=== PATIENT | male | born 1990 | race Caucasian/White ===

== ENCOUNTER 2017-08-30 14:16 | Inpatient (IN) ==
--- NOTE | 2017-08-30 15:07 | Emergency Department Note ---
Disposition Clinical Impression: Suicidal ideation Depression Qualifiers: Depression Type: unspecified Qualified Code(s): F32.9 - Major depressive disorder, single episode, unspecified Disposition: Admitted As Inpatient Condition: Good Time of Disposition: 18:45 Psych HPI - General Chief Complaint: ED Psychiatric Symptoms Stated Complaint: SI Time Seen by Provider: 08/30/17 14:51 Source: patient Mode of arrival: ambulatory Limitations: no limitations Nursing Notes Reviewed: Yes Vital Signs Reviewed: Yes - History of Present Illness HPI Narrative: 27-year-old male who has been depressed states he tried to hang himself 2 days ago. Denies any neck pain at this time no respiratory complaints. Patient was pink slipped on arrival. 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 Constitutional: Denies: fever, chills, weakness, weight change Eyes: Denies: eye pain, eye discharge, vision change ENT ED: Denies: ear pain, throat pain, dental pain, hearing loss, epistaxis, congestion, dysphagia Cardiovascular: Denies: chest pain, palpitations, dyspnea on exertion, edema, syncope Respiratory: Denies: cough, dyspnea, wheezes, hemoptysis, stridor Gastrointestinal: Denies: abdominal pain, nausea, vomiting, diarrhea, constipation, hematemesis, melena, hematochezia Genitourinary: Denies: urgency, dysuria, frequency, hematuria Musculoskeletal: Denies: back pain, neck pain, arthralgia, myalgia Integumentary: Denies: rash, abrasion, lesions Neurological: Denies: headache, weakness, numbness, paresthesias, confusion, abnormal gait, vertigo Psychiatric: Reports: depression, suicidal thoughts. Denies: anxiety, homicidal thoughts, auditory hallucinations, visual hallucinations Endocrine: Denies: fatigue Hematological/Lymphatic: Denies: easy bleeding, easy bruising Allergic/Immunologic: Denies: facial swelling, urticaria Past Medical History - Past Medical History Medical history: Reports: other Psychiatric history: Reports: anxiety, ADHD, depression - Social History Smoking Status: Current every day smoker Alcohol use: Reports: none Drug use: Reports: methamphetamine, IV Drug Use Physical Exam - General Limitations: no limitations General appearance: alert, in no apparent distress - Head Head exam: atraumatic, normocephalic, normal inspection - Eye Eye exam: Present: normal appearance, PERRL, EOMI - ENT ENT exam: normal exam, normal oropharynx, mucous membranes moist - Neck Neck exam: Present: normal inspection, full ROM, trachea midline - Chest Chest inspection: Present: normal inspection, symmetric chest wall rise - Respiratory Respiratory exam: Present: normal lung sounds bilaterally - Cardiovascular Cardiovascular exam: Present: regular rate, normal rhythm, normal heart sounds - Abdominal Exam Abdominal exam: Present: soft, Non-Tender. Absent: tenderness, distention, guarding, rebound, rigidity - Extremities Exam Extremities exam: Present: normal inspection, full ROM. Absent: tenderness, pedal edema - Expanded Lower Extremity Exam Neurovascular/Tendon exam: Absent: motor deficit, sensory deficit, tendon deficit Gait: observed and normal - Back Exam Back exam: Present: normal inspection, full ROM. Absent: tenderness - Neurological Exam Neurological exam: Present: alert, oriented X3 - Psychiatric Psychiatric exam: Present: depressed - Skin Skin exam: Present: warm, dry, intact, normal color Course Vital Signs Temperature 98.4 F 08/30/17 14:37 Pulse Rate 57 08/30/17 14:37 Respiratory Rate 16 08/30/17 14:37 Blood Pressure 145/77 08/30/17 14:37 O2 Sat by Pulse Oximetry 98 08/30/17 14:37 Temperature 98.4 F 08/30/17 14:37 Pulse Rate 57 08/30/17 14:37 Respiratory Rate 16 08/30/17 14:37 Blood Pressure 145/77 08/30/17 14:37 O2 Sat by Pulse Oximetry 98 08/30/17 14:37 Oxygen Delivery Oxygen Delivery Room Air Psych - Lab Data Lab results reviewed: Yes I reviewed the patient's lab results. Result diagrams: 08/30/17 15:03 08/30/17 15:03 Lab Results 08/30/17 08/30/17 08/30/17 Range/Units 15:03 15:03 16:14 WBC 9.5 (4.3-11.1) K/mcL RBC 4.41 (4.19-5.50) M/mcL Hgb 14.0 (12.9-16.9) g/dL Hct 42.8 (37.5-50.1) % MCV 97.1 (83.0-100.0) fL MCH 31.7 (28.0-33.3) pg MCHC 32.7 (31.6-35.5) g/dL RDW 12.9 (11.5-14.5) % Plt Count 275 (140-400) K/mcL MPV 9.8 (9.4-12.4) fL Immature Gran % 0.5 (0-4) % Seg Neutrophils % 60.3 % Lymphocytes % 26.6 % Monocytes % 7.9 % Eosinophils % 4.3 % Basophils % 0.4 % Neutrophils # 5.7 (1.6-8.9) K/mcL Lymphocytes # 2.5 (0.6-4.6) K/mcL Monocytes # 0.8 (0.0-1.3) K/mcL Eosinophils # 0.4 (0.0-0.6) K/mcL Basophils # 0.0 (0.0-0.2) K/mcL Sodium 138 (136-145) mEq/L Potassium 4.2 (3.5-5.1) mEq/L Chloride 109 H (98-107) mEq/L Carbon Dioxide 26 (23-29) mEq/L BUN 15 (6-20) mg/dL Creatinine 0.76 (0.70-1.30) mg/dL Est GFR ( Amer) > 60 (> 60) Est GFR (Non-Af Amer) > 60 (> 60) BUN/Creatinine Ratio 20 (6-26) Glucose 100 (70-105) mg/dL Calculated Osmolality 287 (280-300) Calcium 8.7 (8.6-10.3) mg/dL Urine Color Yellow (Yellow) Urine Clarity Clear (Clear) Urine pH 6.5 (5.0-8.0) pH Units Ur Specific [place] 1.011 (1.010-1.025) Urine Protein Negative (Neg-Trace) mg/dL Urine Glucose (UA) Normal (Normal) mg/dL Urine Ketones Negative (Negative) mg/dL Urine Blood Negative (Negative) Urine Nitrite Negative (Negative) Urine Bilirubin Negative (Negative) Urine Urobilinogen Normal (Normal) mg/dL Ur Leukocyte Esterase Trace H (Negative) Urine Microscopic RBC 0-3 (0-3) per hpf Urine Microscopic WBC 3-5 H (0-3) per hpf Ur Squamous Epith Cells Moderate H (None-Few) per lpf Urine Bacteria None Seen (None-Few) per hpf Hyaline Casts None Seen (None-Few) per lpf Salicylates < 5.0 L (15.0-30.0) mg/dL Urine Opiates Screen (Mulygg=715) ng/mL Acetaminophen < 1.0 L (10-30) mcg/mL Ur Barbiturates Screen (Ohfqhp=179) ng/mL Ur Phencyclidine Scrn (Cutoff=25) ng/mL Ur Amphetamines Screen (Txcocf=2273) ng/mL U Benzodiazepines Scrn (Ughmcg=760) ng/mL Urine Cocaine Screen (Cutoff= 300) ng/mL U Marijuana (THC) Screen (Cutoff = 50) ng/mL Ethyl Alcohol < 10 (0-10) mg/dL 08/30/17 Range/Units 16:14 WBC (4.3-11.1) K/mcL RBC (4.19-5.50) M/mcL Hgb (12.9-16.9) g/dL Hct (37.5-50.1) % MCV (83.0-100.0) fL MCH (28.0-33.3) pg MCHC (31.6-35.5) g/dL RDW (11.5-14.5) % Plt Count (140-400) K/mcL MPV (9.4-12.4) fL Immature Gran % (0-4) % Seg Neutrophils % % Lymphocytes % % Monocytes % % Eosinophils % % Basophils % % Neutrophils # (1.6-8.9) K/mcL Lymphocytes # (0.6-4.6) K/mcL Monocytes # (0.0-1.3) K/mcL Eosinophils # (0.0-0.6) K/mcL Basophils # (0.0-0.2) K/mcL Sodium (136-145) mEq/L Potassium (3.5-5.1) mEq/L Chloride (98-107) mEq/L Carbon Dioxide (23-29) mEq/L BUN (6-20) mg/dL Creatinine (0.70-1.30) mg/dL Est GFR ( Amer) (> 60) Est GFR (Non-Af Amer) (> 60) BUN/Creatinine Ratio (6-26) Glucose (70-105) mg/dL Calculated Osmolality (280-300) Calcium (8.6-10.3) mg/dL Urine Color (Yellow) Urine Clarity (Clear) Urine pH (5.0-8.0) pH Units Ur Specific [place] (1.010-1.025) Urine Protein (Neg-Trace) mg/dL Urine Glucose (UA) (Normal) mg/dL Urine Ketones (Negative) mg/dL Urine Blood (Negative) Urine Nitrite (Negative) Urine Bilirubin (Negative) Urine Urobilinogen (Normal) mg/dL Ur Leukocyte Esterase (Negative) Urine Microscopic RBC (0-3) per hpf Urine Microscopic WBC (0-3) per hpf Ur Squamous Epith Cells (None-Few) per lpf Urine Bacteria (None-Few) per hpf Hyaline Casts (None-Few) per lpf Salicylates (15.0-30.0) mg/dL Urine Opiates Screen Negative (Fmxkum=375) ng/mL Acetaminophen (10-30) mcg/mL Ur Barbiturates Screen Negative (Nitcxu=410) ng/mL Ur Phencyclidine Scrn Negative (Cutoff=25) ng/mL Ur Amphetamines Screen Positive H (Jktodp=5527) ng/mL U Benzodiazepines Scrn Negative (Svakfd=169) ng/mL Urine Cocaine Screen Negative (Cutoff= 300) ng/mL U Marijuana (THC) Screen Negative (Cutoff = 50) ng/mL Ethyl Alcohol (0-10) mg/dL Psychiatric Medical Clearance - Medical Clearance Checklist Does the patient have a NEW psychiatric condition?: No Any abnormalities indicating possible medical illness?: No Any history of medical issues?: No Medical History: No Social History Section defined Any abnormal vital signs prior to transfer?: No Current Vitals: Last Vital Signs Temp 98.4 F 08/30/17 14:37 Pulse 57 08/30/17 14:37 Resp 16 08/30/17 14:37 BP 145/77 08/30/17 14:37 Pulse Ox 98 08/30/17 14:37 Is the patient intoxicated or cognitively impaired?: No Psychiatric Lab Panel: Drug Levels and Toxicity 08/30/17 08/30/17 15:03 16:14 Urine Opiates Screen Negative Acetaminophen < 1.0 L Ur Barbiturates Screen Negative Ur Phencyclidine Scrn Negative Ur Amphetamines Screen Positive H U Benzodiazepines Scrn Negative Urine Cocaine Screen Negative U Marijuana (THC) Screen Negative Ethyl Alcohol < 10 Any abnormalities on the physical exam?: No Any abnormal labs?: No Abnormal Labs: Abnormal lab results Chloride 109 mEq/L (98-107) H 08/30/17 15:03 Ur Leukocyte Esterase Trace (Negative) H 08/30/17 16:14 Urine Microscopic WBC 3-5 per hpf (0-3) H 08/30/17 16:14 Ur Squamous Epith Cells Moderate per lpf (None-Few) H 08/30/17 16:14 Salicylates < 5.0 mg/dL (15.0-30.0) L 08/30/17 15:03 Acetaminophen < 1.0 mcg/mL (10-30) L 08/30/17 15:03 Ur Amphetamines Screen Positive ng/mL (Rlwlsa=0695) H 08/30/17 16:14 Does the patient require durable medical equiptment?: No Is the patient ambulatory?: Yes Is the patient a fall risk?: No Has the patient been medically cleared?: Yes Any acute medical condition require Tx prior to transfer?: No Statement of Medical Clearance: I have evaluated the patient, reviewed diagnostic information, and certify that the patient's medical condition is sufficiently stable that transfer to the psychiatric unit does not pose a significant risk of deterioration.
[2017-08-30 15:11] LABS: Basophils % 0.4 %; Eosinophils # 0.4 K/mcL (0.0-0.6); Eosinophils % 4.3 %; Hematocrit 42.8 % (37.5-50.1); Immature Granulocytes % 0.5 % (0-4); Lymphocytes # 2.5 K/mcL (0.6-4.6); Lymphocytes % 26.6 %; Mean Corpuscular HGB Conc 32.7 g/dL (31.6-35.5); Mean Corpuscular Hemoglobin 31.7 pg (28.0-33.3); Mean Corpuscular Volume 97.1 fL (83.0-100.0); Mean Platelet Volume 9.8 fL (9.4-12.4); Monocytes # 0.8 K/mcL (0.0-1.3); Monocytes % 7.9 %; Neutrophils # 5.7 K/mcL (1.6-8.9); Platelet Count 275 K/mcL (140-400); Red Blood Count 4.41 M/mcL (4.19-5.50); Red Cell Distribution Width 12.9 % (11.5-14.5); Segmented Neutrophils % 60.3 %
[2017-08-30 15:24] LABS: Acetaminophen < 1.0 mcg/mL (10-30); Ethanol < 10 mg/dL (0-10); Salicylate < 5.0 mg/dL (15.0-30.0)
[2017-08-30 15:40] LABS: BUN/Creatinine Ratio 20 (6-26); Blood Urea Nitrogen 15 mg/dL (6-20); Calcium 8.7 mg/dL (8.6-10.3); Carbon Dioxide 26 mEq/L (23-29); Chloride 109 mEq/L (98-107); Glucose 100 mg/dL (70-105); Osmolality,Calculated 287 (280-300); Potassium 4.2 mEq/L (3.5-5.1); Sodium 138 mEq/L (136-145); eGFR For African Americans > 60 (> 60); eGFR For Non-African Americans > 60 (> 60)
[2017-08-30 16:19] LABS: Bilirubin,Urine Negative (Negative); Blood,Urine Negative (Negative); Clarity,Urine Clear (Clear); Color,Urine Yellow (Yellow); Glucose,Urine (UA) Normal (Normal); Ketones,Urine Negative (Negative); Leukocyte Esterase,Urine Trace (Negative); Nitrite,Urine Negative (Negative); PH,Urine 6.5 pH Units (5.0-8.0); Protein,Urine Negative (Neg-Trace); Specific Gravity,Urine 1.011 (1.010-1.025); Urobilinogen,Urine Normal (Normal)
[2017-08-30 16:23] LABS: Bacteria,Urine None Seen per hpf (None-Few); Hyaline Casts,Urine None Seen per lpf (None-Few); RBC,Urine 0-3 per hpf (0-3); Squamous Epithelial Cell,Urine Moderate per lpf (None-Few)
[2017-08-30 16:25] LABS: Amphetamine Screen,Urine Positive ng/mL (Cutoff=1000); Barbiturate Screen,Urine Negative ng/mL (Cutoff=200); Benzodiazepines Screen,Urine Negative ng/mL (Cutoff=200); Cannabinoid Screen,Urine Negative ng/mL (Cutoff = 50); Cocaine Screen,Urine Negative ng/mL (Cutoff= 300); Opiate Screen,Urine Negative ng/mL (Cutoff=300); Phencyclidine Screen,Urine Negative ng/mL (Cutoff=25)
[2017-08-30] MEDS ORDERED: Haloperidol Lactate 5 MG/ML VIAL IM ONE (18:23)
[2017-08-30] MEDS ORDERED: *HR* LORazepam 2 MG/ML VIAL IM ONE (18:23)
[2017-08-30] MEDS ORDERED: traZODone 50 MG TABLET PO PRN (19:24)
[2017-08-30] MEDS ORDERED: Haloperidol Lactate 5 MG/ML VIAL IM PRN (19:24)
[2017-08-30] MEDS ORDERED: MOM Conc 10 ML UD.LIQ PO PRN (19:24)
[2017-08-30] MEDS ORDERED: Mag Hydrox/Al Hydrox/Simeth 30 ML UDC PO PRN (19:24)
[2017-08-30] MEDS ORDERED: *HR* LORazepam 2 MG/ML VIAL IM PRN (19:24)
[2017-08-30] MEDS ORDERED: *HR* LORazepam 1 MG TABLET PO PRN (19:24)
[2017-08-30] MEDS ORDERED: hydrOXYzine pamoate 25 MG CAPSULE PO PRN (19:24)
[2017-08-30] MEDS ORDERED: Acetaminophen 325 MG TABLET PO PRN (19:24)
[2017-08-30] MEDS ORDERED: Ibuprofen 400 MG TABLET PO PRN (21:23)
[2017-08-30] MEDS ORDERED: Nicotine 2 MG GUM BC PRN (21:24)
--- NOTE | 2017-08-31 12:26 | Psychiatry History & Physical ---
Date of Encounter: 08/31/17 Time of Encounter: 12:12 History of Present Illness Patient Stated Chief Complaint: drug addiction Medicare Admission Attestation: For traditional Medicare patients the provided hospital inpatient services are reasonable and necessary and in the case of services not specified as inpatient -only under 42 CFR 419.22 (n), that they are appropriately provided as inpatient services in accordance 42 CFR 412.3. For Critical Access Hospital the patient may reasonably be expected to be discharged or transferred to a hospital within 96 hours after admission to the Critical Access Hospital. Admitted From: Home Plans for Post Hospital Care: Home History of Present Illness: Mr. Yang is a 27 year old male who presented to the ER with his girlfriend for SI and drug addiction. When girlfriend was evaluated she told staff she was not suicidal or homicidal but that her boyfriend needed help. She stated he attempted to hang himself and that he left a suicide note. Client refused to cooperate with psych staff in the ER. Most likely thought if he did not say anything he would not be admitted. Had to be medicated to get him to the unit. Today he is irritable but talking more. 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 Denies he is suicidal. States "I'm not suicidal , I'm a drug addict." Claims hanging attempt was while high on meth. States he has been using heroin and meth since he was a teenager. States he is interested in rehab "but on my terms." Lives with ex. Multiple children in home but client states he does not use in front of them. States he lost his father to a drug overdose and doesn't want to abandon his own kids in that way. Demanding discharge. Minimally cooperative knowing that is unlikely to happen today. Willing to let us talk to his ex for safety planning purposes. Willing to accept referrals for substance abuse treatment. Admits he is depressed but denies SI and refuses to consider medications at this point. Willing to accept counseling referral. Will try to meet him where he is at. Does not want medications and medications will be minimally effective while he is still in an acute withdrawal period. Substance abuse is likely the primary concern. Still at risk for suicide/self harm but may be more at risk if treatment is forced on him. Will start with what he is willing to accept at this point. Past Med Surg Social Fam HX - Past Medical History Medical history: other - Past Psychiatric History Psychiatric history: Reports: depression, prior suicide attempt Family psychiatric history: Unknown Family History of Suicide: Unknown - Social History Smoking Status: Current every day smoker Alcohol use: none Drug use: methamphetamine, IV Drug Use Medications & Allergies Unable To Obtain [Unable to Obtain] 08/30/17 [History] 3 Allergy/AdvReac Type Severity Reaction Status Date / Time No Known Allergies Allergy Verified 08/30/17 14:37 Review of Systems Constitutional: Denies: fever, chills, weakness, weight change Eyes: Denies: eye pain, vision change Ears, Nose, Throat: Denies: ear pain, throat pain, dental pain, hearing loss, congestion Cardiovascular: Denies: chest pain, palpitations, dyspnea on exertion Respiratory: Denies: cough, dyspnea, wheezes Gastrointestinal: Denies: abdominal pain, nausea, vomiting, diarrhea, constipation Genitourinary male: Denies: urgency, dysuria, frequency, genital lesions Genitourinary female: Denies: urgency, dysuria, frequency, abnormal menses, dyspareunia Musculoskeletal: Denies: joint swelling, joint pain Integumentary: Denies: rash, lesions, pruritus Neurological: Denies: headache, weakness, numbness, memory loss Endocrine: Denies: fatigue, heat or cold intolerance Hematologic/Lymphatic: Denies: easy bruising, lymphadenopathy Allergic/Immunologic: Denies: urticaria, itchy eyes Mental Status Exam Patient orientation: Yes Person, Yes Time, Yes Place Level of alertness: Alert Patient appearance: Appropriate Behavior: uncooperative Psychomotor activity: Increased Eye contact: Minimal Contact Mood description: Angry, Depressed, Irritable Affect description: congruent with mood Speech pattern: Normal rate, Normal rhythm, Normal tone Speech volume: Normal Thought process: Linear Thought content: No Suicidal ideation, No Homicidal ideation, No Overt delusions Perceptual disturbances: No Auditory hallucinations, No Visual hallucinations Attention span: Capable of Focused Attention Memory description: Grossly Intact Patient reliability: Questionable Historian Intelligence estimate: Average Judgment: Limited Insight: Minimal Exam - HEENT Head exam IM: Present: atraumatic Eye exam IM: Present: EOMI ENT exam IM: Present: mucous membranes moist - Neurological Neurological exam IM: Present: alert, oriented X3 - Respiratory Respiratory exam IM: Present: CTAB - GI/Abdominal GI/Abdominal exam IM: Present: normal bowel sounds - Extremities Extremities exam IM: Present: full ROM - Skin Skin exam IM: Present: normal color Results - Vital Signs Vital signs: Temp Pulse Resp BP Pulse Ox 98.1 F 43 16 119/63 98 08/31/17 09:00 08/31/17 09:00 08/31/17 09:00 08/31/17 09:00 08/30/17 14:37 - Labs Labs: Laboratory Last Values WBC 9.5 K/mcL (4.3-11.1) 08/30/17 15:03 RBC 4.41 M/mcL (4.19-5.50) 08/30/17 15:03 Hgb 14.0 g/dL (12.9-16.9) 08/30/17 15:03 Hct 42.8 % (37.5-50.1) 08/30/17 15:03 MCV 97.1 fL (83.0-100.0) 08/30/17 15:03 MCH 31.7 pg (28.0-33.3) 08/30/17 15:03 MCHC 32.7 g/dL (31.6-35.5) 08/30/17 15:03 RDW 12.9 % (11.5-14.5) 08/30/17 15:03 Plt Count 275 K/mcL (140-400) 08/30/17 15:03 MPV 9.8 fL (9.4-12.4) 08/30/17 15:03 Immature Gran % 0.5 % (0-4) 08/30/17 15:03 Seg Neutrophils % 60.3 % 08/30/17 15:03 Lymphocytes % 26.6 % 08/30/17 15:03 Monocytes % 7.9 % 08/30/17 15:03 Eosinophils % 4.3 % 08/30/17 15:03 Basophils % 0.4 % 08/30/17 15:03 Neutrophils # 5.7 K/mcL (1.6-8.9) 08/30/17 15:03 Lymphocytes # 2.5 K/mcL (0.6-4.6) 08/30/17 15:03 Monocytes # 0.8 K/mcL (0.0-1.3) 08/30/17 15:03 Eosinophils # 0.4 K/mcL (0.0-0.6) 08/30/17 15:03 Basophils # 0.0 K/mcL (0.0-0.2) 08/30/17 15:03 Sodium 138 mEq/L (136-145) 08/30/17 15:03 Potassium 4.2 mEq/L (3.5-5.1) 08/30/17 15:03 Chloride 109 mEq/L (98-107) H 08/30/17 15:03 Carbon Dioxide 26 mEq/L (23-29) 08/30/17 15:03 BUN 15 mg/dL (6-20) 08/30/17 15:03 Creatinine 0.76 mg/dL (0.70-1.30) 08/30/17 15:03 Est GFR ( Amer) > 60 (> 60) 08/30/17 15:03 Est GFR (Non-Af Amer) > 60 (> 60) 08/30/17 15:03 BUN/Creatinine Ratio 20 (6-26) 08/30/17 15:03 Glucose 100 mg/dL (70-105) 08/30/17 15:03 Calculated Osmolality 287 (280-300) 08/30/17 15:03 Calcium 8.7 mg/dL (8.6-10.3) 08/30/17 15:03 Urine Color Yellow (Yellow) 08/30/17 16:14 Urine Clarity Clear (Clear) 08/30/17 16:14 Urine pH 6.5 pH Units (5.0-8.0) 08/30/17 16:14 Ur Specific [place] 1.011 (1.010-1.025) 08/30/17 16:14 Urine Protein Negative mg/dL (Neg-Trace) 08/30/17 16:14 Urine Glucose (UA) Normal mg/dL (Normal) 08/30/17 16:14 Urine Ketones Negative mg/dL (Negative) 08/30/17 16:14 Urine Blood Negative (Negative) 08/30/17 16:14 Urine Nitrite Negative (Negative) 08/30/17 16:14 Urine Bilirubin Negative (Negative) 08/30/17 16:14 Urine Urobilinogen Normal mg/dL (Normal) 08/30/17 16:14 Ur Leukocyte Esterase Trace (Negative) H 08/30/17 16:14 Urine Microscopic RBC 0-3 per hpf (0-3) 08/30/17 16:14 Urine Microscopic WBC 3-5 per hpf (0-3) H 08/30/17 16:14 Ur Squamous Epith Cells Moderate per lpf (None-Few) H 08/30/17 16:14 Urine Bacteria None Seen per hpf (None-Few) 08/30/17 16:14 Hyaline Casts None Seen per lpf (None-Few) 08/30/17 16:14 Salicylates < 5.0 mg/dL (15.0-30.0) L 08/30/17 15:03 Urine Opiates Screen Negative ng/mL (Xapvak=254) 08/30/17 16:14 Acetaminophen < 1.0 mcg/mL (10-30) L 08/30/17 15:03 Ur Barbiturates Screen Negative ng/mL (Qtzucn=604) 08/30/17 16:14 Ur Phencyclidine Scrn Negative ng/mL (Cutoff=25) 08/30/17 16:14 Ur Amphetamines Screen Positive ng/mL (Dgfjrw=1147) H 08/30/17 16:14 U Benzodiazepines Scrn Negative ng/mL (Ujsrdj=801) 08/30/17 16:14 Urine Cocaine Screen Negative ng/mL (Cutoff= 300) 08/30/17 16:14 U Marijuana (THC) Screen Negative ng/mL (Cutoff = 50) 08/30/17 16:14 Ethyl Alcohol < 10 mg/dL (0-10) 08/30/17 15:03 Assessment and Plan (1) Substance induced mood disorder Current visit: Yes Status: Acute Plan: Admit inpatient for safety and stabilization, Close observation, Suicide Precautions per unit protocol, Encourage participation in unit milieu, Group Therapy, Monitor sleep, Monitor appetite Risks, benefits, side effects, alternatives discussed w/pt: Yes Patient agreeable to treatment: Yes Plans for Post Hospital Care: Home Estimated Length of Stay (Days): 4 (2) Opiate dependence Current visit: Yes Status: Acute Plan: Admit inpatient for safety and stabilization, Close observation, Suicide Precautions per unit protocol, Encourage participation in unit milieu, Group Therapy, Monitor sleep, Monitor appetite Risks, benefits, side effects, alternatives discussed w/pt: Yes Patient agreeable to treatment: Yes Plans for Post Hospital Care: Home Estimated Length of Stay (Days): 4 Qualifiers: Substance use status: in withdrawal Qualified Code(s): F11.23 - Opioid dependence with withdrawal (3) Amphetamine and other psychostimulant dependence, continuous Current visit: Yes Status: Acute Plan: Admit inpatient for safety and stabilization, Close observation, Suicide Precautions per unit protocol, Encourage participation in unit milieu, Group Therapy, Monitor sleep, Monitor appetite Risks, benefits, side effects, alternatives discussed w/pt: Yes Patient agreeable to treatment: Yes Plans for Post Hospital Care: Home Estimated Length of Stay (Days): 4
[2017-09-01 09:57] VITALS: BP 112/62
--- NOTE | 2017-09-01 13:53 | Discharge Summary ---
Date of Encounter: 09/01/17 Time of Encounter: 13:50 Diagnosis - Discharge Diagnosis (1) Substance induced mood disorder Status: Acute (2) Opiate dependence Status: Acute Qualifiers: Substance use status: in withdrawal Qualified Code(s): F11.23 - Opioid dependence with withdrawal (3) Amphetamine and other psychostimulant dependence, continuous Status: Acute Medications - Discharge Medications Prescriptions: hydrOXYzine pamoate [HydrOXYzine Pamoate] 25 mg PO TID PRN #42 capsule PRN Reason: Anxiety hydrOXYzine pamoate [HydrOXYzine Pamoate] 25 mg PO TID PRN #42 capsule 09/01/17 [Rx] 3 Allergy/AdvReac Type Severity Reaction Status Date / Time No Known Allergies Allergy Verified 08/30/17 14:37 Provider Date of admission: 08/30/17 17:46 Primary care physician: PCP NONE Discharging clinician: Billie Denny Assessment and Plan - Patient/Caregiver Discharge Instructions Activity: resume usual activities as tolerated Diet: regular diet - Follow up Plan Follow up with: [facility] [Outside] (To establish in services, you may walk into the office any Tuesday, Tuesday or at 8:00 AM or 1:00 PM. At that time you will complete paperwork and meet with a counselor so your case can be opened. A treatment plan will then be established for continued services. You will be assessed for Vivitrol at this time as well. There is a provider in the office that is able to resume your Vivitrol treatment if you wish.) Functional capacity at discharge: independent ambulation Overall status at discharge: Stable Disposition: Home, Self-Care Hospital Course Hospital course: Mr. Yang is a 27 year old male who was admitted secondary to opiate and meth dep and SI. He was initially irritable, agitated, uncooperative and semi threatening. Today he is much better. Pleasant during conversation. Far more forthcoming. Stated suicide attempt was while high on meth but that the main impetus for it was that he had gotten his current girlfriend addicted to drugs and turned her into someone he does not like. Claims current girlfriend had never used anything before and that he got her hooked on meth for his own amusement. However, he was regretting his choices and felt she would be better off without him. Does not feel this way now. Also states he watched his father overdose and on heroin when he was 5 y/o and that he would never want to do that to his own children. Remains adamant that he does not use in front of them and that he will not use in his ex-girlfriend's house. Staff spoke with his ex-girlfriend and she verified everything that client said. She does not have safety issues with having him return to live with her and states he will not be using drugs in the house. Current girlfriend actually encouraged client to go back and live with ex knowing that he would not use there and that it would be safe for him. Client's ex intends to pick him up on her way home from work today. Client expressed interest in starting Vivitrol again. Brought this up on his own. States he has had periods of success with Vivitrol in the past and stated he would follow through with an appointment to get back on it if staff were able to arrange this for him. Stated today admission has helped him. Wants to leave but did not push discharge. Stated he has spent a lot of time thinking in his room and that he needs to make better decisions for himself. Tried to rationalize behaviors in ER as opposed to apologizing for them but does seem to have some insight. Agreed to follow up on counseling recommendations. Adamantly denies SI today. No evidence of psychosis. Seems future oriented. - Time Spent with Patient Total time spent providing and/or coordinating discharge services: Quality - Multiple Antipsychotics Patient discharged on 2 or more antipsychotic medications: No Procedures - Procedures Procedures: Medication Management, Crisis Stabilization, Supportive Therapy, Group Therapy Mental Status Exam - Mental Status Exam Patient orientation: Yes Person, Yes Time, Yes Place Level of alertness: Alert Patient appearance: Appropriate, Well Groomed Behavior: calm, cooperative Psychomotor activity: Normal Eye contact: Maintains Eye Contact Mood description: Euthymic/stable Affect description: congruent with mood, full range Speech pattern: Normal rate, Normal rhythm, Normal tone Speech Volume: Normal Thought process: Linear, Goal Oriented Thought Content: No Suicidal ideation, No Homicidal ideation, No Overt delusions Perceptual Disturbances: No Auditory hallucinations, No Visual hallucinations Judgment: Fair Insight: Partial
== END 2017-09-01 15:13 | disposition home or self-care (01) | DRG 897 ==
LOC: EMEROO 14:16 → 1ANU 17:46
PROVIDERS: ADMIT Psychiatry & Neurology Psychiatry; ATTEND Psychiatry & Neurology Psychiatry